=== PATIENT | female | born 1990 | race Caucasian/White ===

== ENCOUNTER 2022-02-08 22:50 | Emergency (ER) | payer MEDICAID ==
[2022-02-08] MEDS ORDERED: WELLBUTRIN XL300 M1 PO (23:00)
[2022-02-08] MEDS ORDERED: LEVOTHYROXINE125 MC1 PO (23:01)
[2022-02-08 23:36] LABS: BASO # 0.04 K/mm3 (0.02-0.10); EOS # 0.34 K/mm3 (0.04-0.40); HEMATOCRIT 40.2 % (37.0-47.0); HEMOGLOBIN 13.4 g/dL (12.5-16.0); MEAN CELL VOLUME 88 fl (78-100); MEAN CORPUSCULAR HEMOGLOBIN 29 pg (27-31); MEAN CORPUSCULAR HGB CONC 33 g/dL (33-37); MEAN PLATELET VOLUME 10.1 fl (7.4-10.4); MONO # 0.98 K/mm3 (0.20-0.80); NEU # 11.59 K/mm3 (1.40-6.50); PLATELET COUNT 255 K/mm3 (130-400); RED BLOOD COUNT 4.57 M/mm3 (4.10-5.30); RED CELL DISTRIBUTION WIDTH 13.5 % (11.5-14.5)
[2022-02-08 23:49] LABS: POTASSIUM 3.7 mmol/L (3.5-5.1)
[2022-02-08 23:50] LABS: CALCIUM 9.8 mg/dL (8.3-10.5)
[2022-02-08 23:52] LABS: PROTHROMBIN TIME 9.3 SECONDS (9.0-12.0)
[2022-02-09 00:04] LABS: URINE APPEARANCE CLEAR; URINE COLOR YELLOW; URINE PROTEIN(semi-quant) NEGATIVE (NEGATIVE)
[2022-02-09 00:05] LABS: URINE BILIRUBIN NEGATIVE (NEGATIVE); URINE BLOOD 250 ery/uL (NEGATIVE); URINE GLUCOSE NEGATIVE (NEGATIVE); URINE KETONE NEGATIVE (NEGATIVE); URINE LEUKOCYTE ESTERASE NEGATIVE (NEGATIVE); URINE NITRATE NEGATIVE (NEGATIVE); URINE UROBILINOGEN NORMAL (NORMAL); URINE WBC 0-1 /hpf (0-3)
[2022-02-09 01:21] VITALS: BP 145/74
== END 2022-02-09 01:26 | disposition home or self-care (01) ==
LOC: ED 22:50
PROVIDERS: Nurse Practitioner Family
DX: O20.0 Threatened abortion (principal); Z28.310 Unvaccinated for COVID-19
CPT/HCPCS: J7040

== ENCOUNTER → 2023-05-15 | Outpatient (CLI) | payer MEDICAID ==
[~2023-05-15] MED LIST: LEVOTHYROXINE125 MC1 PO; WELLBUTRIN XL300 M1 PO
== END ==
LOC: LAB 10:58
DX: N93.9 Abnormal uterine and vaginal bleeding, unspecified (principal)